=== PATIENT | female | born 1985 | race Caucasian/White ===

== ENCOUNTER 2019-03-03 20:07 | Emergency (ER) | payer SELFPAY ==
[~2019-03-03] VITALS: Ht 160 cm; Wt 54.0 kg
[2019-03-03 20:17] VITALS: BP 130/65
[2019-03-03] MEDS ORDERED: TRAM50TA PO (20:45)
[2019-03-03] MEDS ORDERED: HYDROcodone/APAP 5/325MG 1 TAB TABLET PO ONE (20:45)
[2019-03-03] MEDS ORDERED: SULF1TAB24 PO (20:45)
[2019-03-03] MEDS ORDERED: DIPHTH,PERTUSS(ACELL),TET TOX 0.5 ML DISP.SYRIN. VAX IM ONE (20:45)
--- NOTE | 2019-03-03 20:45 | PHYS DOC ---
Past Medical History Past Medical History: No Pertinent History (ALCIDES FLORES APRN) Past Surgical History: No Surgical History (ALCIDES FLORES APRN) Alcohol Use: None Drug Use: None (ALCIDES FLORES APRN) Adult General Chief Complaint Chief Complaint: ABSCESS HPI HPI Patient is a 33 year old female with no significant medical history who presents to the ED today with an abscess on the left biceps region for 1 month month patient states she's noted yellowness to the region. Denies any fever. She states she attempted to drain the region with no success. (ALCIDES FLORES APRN) Review of Systems Review of Systems Constitutional: Denies fever or chills [] Musculoskeletal: Denies back pain or joint pain [] Integument: Reports left upper extremity abscess Neurologic: Denies headache, focal weakness or sensory changes [] All other systems were reviewed and found to be within normal limits, except as documented in this note. (ALCIDES FLORES APRN) Current Medications Current Medications Current Medications Medications (Trade) Dose Ordered Sig/Ciera Start Time Stop Time Status Last Admin Dose Admin Acetaminophen/ Hydrocodone Bitart (Lortab 5/325) 2 tab 1X ONCE 03/03/19 20:45 03/03/19 20:46 DC 03/03/19 20:42 2 TAB Diphtheria/ Tetanus/Acell Pertussis (Boostrix) 0.5 ml ONCE ONCE 03/03/19 20:45 03/03/19 20:46 DC 03/03/19 20:45 0.5 ML (DAPHNE LANG DO) Allergies Allergies Allergies Coded Allergies Type Severity Reaction Last Updated Verified No Known Drug Allergies 03/03/19 No (DAPHNE LANG DO) Physical Exam Physical Exam Constitutional: Well developed, well nourished, no acute distress, non-toxic appearance. [] Skin: Warm, dry, left biceps with an indurated area approximately 2 x 2 centimeters with a center that is yellow and fluctuant slight warm and tenderness to the region. Back: No tenderness, no CVA tenderness. [] Extremities: No tenderness, no cyanosis, no clubbing, ROM intact, no edema. [] Neurologic: Alert and oriented X 3, normal motor function, normal sensory function, no focal deficits noted. [] Psychologic: Affect normal, judgement normal, mood normal. [] (ALCIDES FLORES APRN) Current Patient Data Vital Signs Vital Signs Date Time Temp Pulse Resp B/P (MAP) Pulse Ox O2 Delivery O2 Flow Rate FiO2 03/03/19 20:17 99.1 98 18 130/65 (86) 99 Room Air 99.1 (DAPHNE LANG DO) EKG EKG [] (ALCIDES FLORES APRN) Radiology/Procedures Radiology/Procedures Indication: abscess left upper extremity Procedure: The patient was positioned appropriately. Local anesthesia was not applicable. 18 gauge needle was used to puncture the region,small amount of yellow blood material was expressed. The drainage cavity was irrigated and covered with sterile gauze. The patients tetanus status updated as needed. The patient tolerated the procedure well. Complications: none.[] (ALCIDES FLORES APRN) Course & Med Decision Making Course & Med Decision Making Pertinent Labs and Imaging studies reviewed. (See chart for details) This is a 33-year-old female patient who has an infected cyst on her left biceps. The region was drained in the ED as noted in procedures. Tetanus updated. Provided instructions to follow-up with bellows assembler. (ALCIDES FLORES APRN) Dragon Disclaimer Dragon Disclaimer This electronic medical record was generated, in whole or in part, using a voice recognition dictation system. (ALCIDES FLORES APRN) Departure Departure Impression: Primary Impression: Abscess Additional Impression: Cyst Disposition: 01 HOME, SELF-CARE Condition: STABLE Referrals: PATRIC YOUNG MD Follow up in one week Patient Instructions: Abscess, Care After Additional Instructions: You have an infected cyst on your left upper extremity which was drained in the emergency room. Please follow-up with the provided bellows assembler in 1-2 weeks. C omplete your antibiotics. Scripts Tramadol Hcl (TRAMADOL HCL) 50 Mg Tablet 50 MG PO Q6HRS PRN for PAIN, #14 TAB Prov: ALCIDES FLORES APRN 03/03/19 Sulfamethoxazole/Trimethoprim (BACTRIM DS TABLET) 1 Each Tablet 1 TAB PO BID for 7 Days, #14 TAB 0 Refills Prov: ALCIDES FLORES APRN 03/03/19 Attending Signature Attending Signature I have reviewed the PA/CHILD HEALTH ASSOCIATE's note and plan of care. I was available for consultation as needed during the patient's visit in the emergency department. I agree with the clinical impression, plan, and disposition. (DAPHNE LANG DO) Problem Qualifiers ALCIDES FLORES MONIQUE Mar 03, 2019 20:45 DAPHNE LANG DO Mar 04, 2019 05:30
== END 2019-03-03 20:52 | disposition home or self-care (01) ==
LOC: ER 20:07
DX: L02.414 Cutaneous abscess of left upper limb (principal); L72.8 Other follicular cysts of the skin and subcutaneous tissue
CPT/HCPCS: 10060; 90471; 90715; 99283

== ENCOUNTER 2019-07-17 19:35 | Emergency (ER) | payer SELFPAY ==
[~2019-07-17] VITALS: Ht 160 cm; Wt 52.3 kg
[~2019-07-17 19:35] MED LIST: SULF1TAB24 PO; TRAM50TA PO
[2019-07-17 20:27] LABS: BASO # 0.1 x10^3/uL (0.0-0.2); BASO % 1 % (0-3); EOS # 0.2 x10^3/uL (0.0-0.7); EOS % 4 % (0-3); HEMATOCRIT 40.1 % (36.0-47.0); HEMOGLOBIN 13.6 g/dL (12.0-15.5); LYMPH % 18 % (24-48); MEAN CORPUSCULAR HEMOGLOBIN 33 pg (25-35); MEAN CORPUSCULAR HGB CONC 34 g/dL (31-37); MEAN CORPUSCULAR VOLUME 96 fL (79-100); MONO # 0.3 x10^3/uL (0.0-1.1); MONO % 6 % (0-9); NEUT # 4.2 x10^3/uL (1.8-7.7); NEUT % 71 % (31-73); PLATELET COUNT 224 x10^3/uL (140-400); RED BLOOD COUNT 4.15 x10^6/uL (3.50-5.40); RED CELL DISTRIBUTION WIDTH 13.7 % (11.5-14.5); WHITE BLOOD COUNT 5.9 x10^3/uL (4.0-11.0)
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
[2019-07-17 20:38] LABS: CALCIUM 8.7 mg/dL (8.5-10.1); CREATININE 0.8 mg/dL (0.6-1.0); GFR 82.6; POTASSIUM 3.5 mmol/L (3.5-5.1)
[2019-07-17 20:45] LABS: ALBUMIN 4.1 g/dL (3.4-5.0); ALBUMIN/GLOBULIN RATIO 1.5 (1.0-1.7); TOTAL PROTEIN 6.9 g/dL (6.4-8.2)
[2019-07-17 20:46] LABS: U PREG PATIENT NEGATIVE (NEG)
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
[2019-07-17 22:00] VITALS: BP 102/59
== END 2019-07-17 22:00 | disposition home or self-care (01) ==
LOC: ER 19:35
DX: S09.8XXA Other specified injuries of head, initial encounter (principal); F10.229 Alcohol dependence with intoxication, unspecified; F17.200 Nicotine dependence, unspecified, uncomplicated; V49.9XXA Car occupant (driver) (passenger) injured in unspecified traffic accident, initial encounter; Y93.89 Activity, other specified; Y92.89 Other specified places as the place of occurrence of the external cause; Y99.8 Other external cause status
CPT/HCPCS: 36415; 70450; 72125; 80053; 81025; 85025; 99285; G0480